=== PATIENT | female | born 1960 | race Caucasian/White ===

== ENCOUNTER 2023-05-17 09:19 | Outpatient (CLI) | payer OTHER, SELFPAY ==
--- NOTE | ~2023-05-17 | XR_ITS ---
Clinical Indication: Bronchitis PA and lateral views of the chest: Comparison: 08/18/2016 Findings: There is pulmonary haziness bilaterally, most prominent at the bilateral lower lobes and le ft upper lobe.. Cardiomediastinal silhouette is within normal limits. Bones and soft tissues are unr emarkable. Impression: Bilateral pulmonary haziness. Correlate for pulmonary edema or infection. Follow-up exam after interv al therapy advised to assure resolution. Reviewed, dictated and finalized at location . [employer] Impression: Bilateral pulmonary haziness. Correlate for pulmonary edema or infection. Follo w-up exam after interval therapy advised to assure resolution.
== END 2023-05-17 09:20 | disposition home or self-care (01) ==
LOC: ANHIMG 09:22
PROVIDERS: PCP Family Medicine; Visit Provider Nurse Practitioner Family
DX: J40 Bronchitis, not specified as acute or chronic (principal); R91.8 Other nonspecific abnormal finding of lung field
CPT/HCPCS: 71046

== ENCOUNTER 2023-11-11 12:36 | Outpatient (CLI) | payer OTHER, SELFPAY ==
--- NOTE | ~2023-11-11 | XR_ITS ---
XR chest 2V 11/11/2023 12:47 Indication: Shortness of breath Procedure: 2 view chest Comparison: Comparison to multiple prior studies sequentially, with oldest reviewed study dated 08/18. Findings: Stable chronic scarring in the left upper thorax. No acute focal pneumonia, edema, pleural effusion or pneumothorax. No acute osseous abnormality. Mildly prominent amber, suspicious for lymphad enopathy. Consider correlation with CT chest. Impression: 1: No acute cardiopulmonary disease. 2: Mildly prominent amber, suspicious for lymphadenopathy. Consider correlation with CT chest with co ntrast. Reviewed, dictated and finalized at location B. Impression: 1: No acute cardiopulmonary disease. 2: Mildly prominent amber, suspicious for lymphadenopathy. Consider correlation with CT chest with contrast.
== END 2023-11-11 12:37 | disposition home or self-care (01) ==
LOC: ANHIMG 12:37
PROVIDERS: PCP Family Medicine; Visit Provider Nurse Practitioner Adult Health
DX: R06.02 Shortness of breath (principal)
CPT/HCPCS: 71046

== ENCOUNTER 2023-11-18 12:38 | Outpatient (CLI) | payer OTHER, SELFPAY ==
--- NOTE | 2023-11-21 12:42 | WPDPFTINT ---
PFT Procedure Performed PFT Procedure Performed Spirometry with Pre/Post Bronchodilator Plethysmography (Lung Vol) Diffusing Cap (DLCO) Flow Vol Loop PFT Interpretation This is a pulmonary function test with pre and post-bronchodilator spirometry, plethysmography and diffusing capacity. The test was performed and results interpreted in accordance with the 2019 and 2005 ATS/ERS Task Force guidelines respectively using the Global Lung Function Initiative-2012 reference equations. Patient demonstrated good effort and cooperation. Reproducibility criteria were met. The quality of the pre bronchodilator spirometry maneuver was Grade A and post bronchodilator spirometry maneuver was Grade A. Findings: Spirometry: There is decreased maximal expiratory airflow at all lung volumes with concave expiratory flow tracing. The contour the inspiratory flow tracing is normal. The pre bronchodilator FVC is 2.39 L, 74% predicted. The pre bronchodilator FEV1 is 1.55 L, 61% predicted. The pre bronchodilator FEV1: FVC ratio 65%. The post bronchodilator FVC is 2.44 L, representing a 2% increase. The post bronchodilator FEV1 is 1.63 L, representing a 5% increase. The post bronchodilator FEV1: FVC ratio 67%. Plethysmography: The total lung capacity is 3.82 L, 74% predicted. The functional residual capacity is 1.95 L, 66% predicted. The residual volume is 1.43 L, 70% predicted. Diffusing capacity: The diffusing capacity unadjusted for hemoglobin and carboxyhemoglobin is 15.3, 70% predicted. The diffusing capacity adjusted for alveolar volume is 3.72, 85% predicted. Impression: There is a combined obstructive and restrictive ventilatory abnormality. There are no guidelines to assign the severity of obstruction and restriction with a combined abnormality. In my opinion, given the moderately concave expiratory flow tracing, decreased FEV1: FVC ratio and mild restrictive abnormality I would state there is a moderate obstructive abnormality and a mild restrictive abnormality resulting in a moderately decrease in the FEV1. There is no significant improvement after inhaling a single dose of albuterol. The diffusing capacity unadjusted for hemoglobin and carboxyhemoglobin is mildly decreased and normalizes when adjusted for alveolar volume. There are no prior studies for comparison
== END 2023-11-18 12:39 | disposition home or self-care (01) ==
LOC: ANHPFT 12:39
PROVIDERS: PCP Family Medicine; Visit Provider Nurse Practitioner Adult Health
DX: R06.02 Shortness of breath (principal); R94.2 Abnormal results of pulmonary function studies
CPT/HCPCS: 94060; 94726; 94729

== ENCOUNTER 2023-11-22 08:12 | Outpatient (CLI) | payer OTHER, SELFPAY ==
--- NOTE | ~2023-11-22 | CT_ITS ---
EXAMINATION: CT diagnostic chest w con DATE: 11/22/2023 08:39 INDICATION: R59.0 - Localized enlarged lymph nodes TECHNIQUE: Computed tomography (CT) of the chest was performed with 75 mL Omnipaque-350 intravenous c ontrast. Additional 3D reconstructions utilizing coronal maximum intensity projection (MIP) were perf ormed. Automated exposure control and iterative reconstruction technique were employed. The dose-rody th product was 812.84 mGy-cm. COMPARISON: Chest CT dated 07/12/2013 FINDINGS: Unchanged occlusion of the left trachea cephalic vein with the injected contrast the left upper extre mity extending to the superior vena cava via multiple collaterals. Again seen are bandlike regions of consolidation and groundglass opacities with associated volume loss and architectural distortion at the medial left upper lobe and superior segment of the left lower lobe in a pattern suggestive of rad iation fibrosis. There are a few small calcified nodule left lung consistent with old granulomatous d isease. Mild bibasilar atelectasis and mild right lower lobar dependent atelectasis. There are few mi ldly prominent likely intrafissural lymph nodes along the right minor and right major fissures. No pu lmonary edema or pleural effusion. Heart size is normal. Atherosclerotic coronary artery calcificatio ns. No pericardial effusion. Thoracic aorta is normal in caliber with no dissection. There multiple s mall calcified mediastinal lymph nodes which could represent sequela of old granulomatous disease or treated lymphoma. No pathologically enlarged thoracic lymphadenopathy. Heterogeneous hepatic attenuat ion with subtle nodular liver surface consistent with cirrhosis. Splenomegaly consistent with seconda ry portal venous hypertension. Moderate thoracic spondylosis. IMPRESSION: 1. A few calcified mediastinal lymph nodes consistent with old granulomatous disease or treated lymph janey. No pathologically enlarged thoracic lymphadenopathy. 2. 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 No acute cardi opulmonary disease. 3. Cirrhosis and splenomegaly consistent with portal venous hypertension. 4. 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 Reviewed, dictated and finalized at location B. IMPRESSION: 1. A few calcified mediastinal lymph nodes consistent with old granulomatous di sease or treated lymphoma. No pathologically enlarged thoracic lymphadenopathy. 2. 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 No acute cardiopulmonary disease. 3. Cirrhosis and splenomegaly consistent with portal venous hypertension. 4. 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
[2023-11-22 08:32] LABS: Estimated Glomerular Filt Rate > 60
== END 2023-11-22 08:13 | disposition home or self-care (01) ==
PROVIDERS: PCP Family Medicine; Visit Provider Nurse Practitioner Adult Health
DX: R59.0 Localized enlarged lymph nodes (principal)
CPT/HCPCS: 71260; Q9967